=== PATIENT | female | born 1960 | race Caucasian/White ===

== ENCOUNTER → 2016-07-10 | Outpatient (CLI) | payer OTHER | LOC: FIMAGING 11:23 | DX: Z12.31 Encounter for screening mammogram for malignant neoplasm of breast (principal); Z80.3 Family history of malignant neoplasm of breast | CPT/HCPCS: G0202 ==

== ENCOUNTER 2017-07-04 11:45 | Emergency (ER) | payer OTHER ==
--- NOTE | 2017-07-04 12:01 | CPEKG ---
Heart Rate: 48 RR Interval: 1250 P-R Interval: 128 QRSD Interval: 90 QT Interval: 456 QTC Interval: 408 P [place]: 15 QRS [place]: -18 T Wave [place]: 50 EKG Severity - OTHERWISE NORMAL ECG - EKG Impression: SINUS BRADYCARDIA EKG Impression: BORDERLINE LEFT AXIS DEVIATION Electronically Signed By: Cabrera Gilbert 06-Jul-2017 12:53:21
--- NOTE | 2017-07-04 12:16 | EDPHY ---
HPI/HX/ROS/PE/MDM Narrative: CHIEF COMPLAINT: Neck/chest pressure, headache. HPI: This patient is a 56 y/o female arriving with her son complaining of headache and a sensation of pressure in her neck and chest. This morning she felt well upon waking. About one hour ago, she developed a bad headache, primarily right- sided. She took two Aleve and the head pain has resolved considerably, but remains present.Additionally the patient has a pressure sensation in her chest and up her neck which is also primarily right-sided. She has never had a similar sensation in the past. This has also lessened, but is more noticeable with deep inspiration. She denies any weakness or numbness. No nausea. No visual changes. No fever, vomiting, diarrhea, or other associated symptoms. REVIEW OF SYSTEMS: Aside from elements discussed in the HPI, a comprehensive 10-point review of systems was reviewed and is negative. PMH: History of meningoblastoma s/p surgery, chemotherapy, radiation. SOCIAL HISTORY: Son at bedside. . Lives in [place]. PHYSICAL EXAM: General:Patient is alert, in no acute distress. ENT:Eyes are normal to inspection. ENT inspection normal. Neck: Normal inspection. Full range of motion. Respiratory:No respiratory distress. Breath sounds normal bilaterally. Cardiovascular: Regular rate and rhythm. Strong peripheral pulses. Normal cap refill. Abdomen:The abdomen is nontender to palpation. There are no peritoneal signs. There are normal bowel sounds. Back: Normal to inspection. No tenderness to palpation. Skin: Normal color. No rash. Warm and dry. Extremities: Normal appearance. Full range of motion. Neuro: Oriented x3. Normal motor function. Normal sensory function. No pronator drift. Normal gait. Cranial nerves intact. ED Course: This 56 year old female presents with right-sided headache as well as right- sided chest and neck pressure. She is neurologically intact on exam. Plan for EKG, chest x-ray, labs including CBC, chemistries, and troponin. Plan for CT brain. Declines pain or nausea medication at this time. EKG was ordered and interpreted by myself. Please see [facility] system for official reading. Chest x-ray negative for acute processes. Plan for d-dimer. Laboratory studies reviewed. Troponin negative. Labs otherwise unremarkable. 13:[address] Murdock radiologist. CT head negative for acute processes. Reassessed patient. Plan to administer 30mg IV Toradol and 1L IV NS for symptom relief. D-dimer negative. 14:40 Reassessed patient. Discussed imaging results. I offered CT chest for further evaluation, but she declines. She is feeling well and is comfortable with discharge home. I provided her with a referral to cardiology for further testing. Follow up and return precautions discussed. She is comfortable with this plan. MDM: This patient presents with headache and chest pain. Given her history of brain CA, a CTH was performed which is thankfully negative for signs of bleed or large tumor recurrence. Patient's headache was treated and symptoms have largely resolved. Chest pain is atypical, and there is no evidence for ACS, PE , PTx, PNA or TAD. The etiology of her symptoms is unclear and we have recommended cardiology referral. - Data Points Imaging Results: Imaging Impressions Head CT 07/04/17 12:18 Impression: 1. Remote postoperative right posterior fossa. 2. Nothing acute identified. 3. Unusual "salt and pepper" skull. Hyperparathyroidism? Results called and discussed with Evelio Cardoso MD, at 07/04/2017 13:02 General information for patients regarding this examination can be found at [email or web address]. If you have questions or comments about this report, please contact me at (hospital) or [phone] (cell). Chest X-Ray 07/04/17 12:19 Impression: Nothing acute identified. Imaging: Discussed imaging studies w/ call center analyst Radiologist, I viewed and interpreted images myself Laboratory Results: Laboratory Results 07/04/17 12:10 07/04/17 12:10 07/04/17 07/04/17 07/04/17 12:10 12:10 12:10 WBC 5.73 10^3/uL 10^3/uL (3.80-9.50) RBC 4.10 10^6/uL L 10^6/uL (4.18-5.33) Hgb 13.2 g/dL g/dL (12.6-16.3) Hct 38.9 % % (38.0-47.0) MCV 94.9 fL fL (81.5-99.8) MCH 32.2 pg pg (27.9-34.1) MCHC 33.9 g/dL g/dL (32.4-36.7) RDW 12.3 % % (11.5-15.2) Plt Count 250 10^3/uL 10^3/uL (150-400) MPV 9.9 fL fL (8.7-11.7) Neut % (Auto) 58.8 % % (39.3-74.2) Lymph % (Auto) 27.4 % % (15.0-45.0) Blanco % (Auto) 7.7 % % (4.5-13.0) Eos % (Auto) 4.4 % % (0.6-7.6) Baso % (Auto) 1.4 % % (0.3-1.7) Nucleat RBC Rel Count 0.0 % % (0.0-0.2) Absolute Neuts (auto) 3.37 10^3/uL 10^3/uL (1.70-6.50) Absolute Lymphs (auto) 1.57 10^3/uL 10^3/uL (1.00-3.00) Absolute Monos (auto) 0.44 10^3/uL 10^3/uL (0.30-0.80) Absolute Eos (auto) 0.25 10^3/uL 10^3/uL (0.03-0.40) Absolute Basos (auto) 0.08 10^3/uL 10^3/uL (0.02-0.10) Absolute Nucleated RBC 0.00 10^3/uL 10^3/uL (0-0.01) Immature Gran % 0.3 % % (0.0-1.1) Immature Gran # 0.02 10^3/uL 10^3/uL (0.00-0.10) D-Dimer < 0.27 ug/mLFEU ug/mLFEU (0.00-0.50) Sodium 136 mEq/L mEq/L (135-145) Potassium 4.4 mEq/L mEq/L (3.5-5.2) Chloride 97 mEq/L mEq/L (97-110) Carbon Dioxide 28 mEq/l mEq/l (22-31) Anion Gap 11 mEq/L mEq/L (8-16) BUN 17 mg/dL mg/dL (7-23) Creatinine 0.7 mg/dL mg/dL (0.6-1.0) Estimated GFR > 60 Glucose 81 mg/dL mg/dL (70-100) Calcium 9.5 mg/dL mg/dL (8.5-10.4) Troponin I < 0.012 ng/mL ng/mL (0.000-0.034) Medications Given: Discontinued Medications Sodium Chloride (Ns) 1,000 mls @ 0 mls/hr IV EDNOW ONE; Wide Open PRN Reason: Protocol Stop: 07/04/17 13:42 Last Admin: 07/04/17 14:00 Dose: 1,000 mls Ketorolac Tromethamine (Toradol) 30 mg IVP EDNOW ONE Stop: 07/04/17 13:42 Last Admin: 07/04/17 14:01 Dose: 30 mg General Time Seen by Provider: 07/04/17 11:53 Initial Vital Signs: Initial Vital Signs Temperature (C) 36.4 C 07/04/17 11:46 Heart Rate 65 07/04/17 11:46 Respiratory Rate 20 07/04/17 11:46 Blood Pressure 148/65 H 07/04/17 11:46 O2 Sat (%) 98 07/04/17 11:46 O2 Delivery Mode Room Air Allergies/Adverse Reactions: No Allergies [NKDA] Allergy (Verified 07/04/17 11:46) Home Medications: Medication Instructions Recorded NK [No Known Home Meds] 07/04/17 Departure - Departure Disposition: Home, Routine, Self-Care Clinical Impression: Headache, Chest pain Condition: Good Instructions: Chest Pain (ED), Acute Headache (ED) Additional Instructions: Follow-up with your primary doctor in 2-3 days. Follow up with a assistant administrator for further testing. We have referred you to our assistant administrator front desk. Return to the Emergency Department for fever, chest pain, shortness of breath, increasing pain, vomiting, vision changes, confusion, or other worsening of condition. Referrals: Jefferson Morales MD [Primary Care Provider] - As per Instructions Kamaljit Martinez MD [Medical Doctor] - As per Instructions Report Scribed for: Evelio Cardoso Report Scribed by: Neisha Rousseau Date of Report: 07/04/17 Time of Report: 12:16 Physician Review and Approval Statement: Portions of this note were transcribed by an ED scribe. I personally performed the history, physical exam, and medical decision making; and confirm the accuracy of the information in the transcribed note.
[2017-07-04 12:26] LABS: PLATELET COUNT 250 10^3/uL (150-400)
[2017-07-04] MEDS ORDERED: KETOROLAC 30 MG/1 ML SDV IVP ONE (13:41)
[2017-07-04] MEDS ORDERED: NS 1,000 ML IV ONE (13:41)
[2017-07-04 15:09] VITALS: BP 132/68
== END 2017-07-04 15:09 | disposition home or self-care (01) ==
DX: R51 Headache (principal); R07.9 Chest pain, unspecified; E86.9 Volume depletion, unspecified
CPT/HCPCS: 96374; J1885

== ENCOUNTER → 2017-07-31 | Outpatient (CLI) | payer OTHER | LOC: FIMAGING 14:06 | PROVIDERS: ATTEND Internal Medicine | DX: Z12.31 Encounter for screening mammogram for malignant neoplasm of breast (principal); Z80.3 Family history of malignant neoplasm of breast ==

== ENCOUNTER → 2017-09-07 | Outpatient (CLI) | payer OTHER | LOC: FIMAGING 13:49 | PROVIDERS: ATTEND Internal Medicine | DX: Z13.820 Encounter for screening for osteoporosis (principal); M85.89 Other specified disorders of bone density and structure, multiple sites; E21.5 Disorder of parathyroid gland, unspecified; E03.9 Hypothyroidism, unspecified; Z78.0 Asymptomatic menopausal state ==

== ENCOUNTER → 2018-05-08 | Outpatient (CLI) | payer OTHER | LOC: BMCIMAGING 09:50 → EDSTATUS 09:59 | PROVIDERS: ATTEND Orthopaedic Surgery Hand Surgery | DX: M25.511 Pain in right shoulder (principal) ==

== ENCOUNTER → 2018-08-02 | Outpatient (CLI) | payer OTHER | LOC: FIMAGING 12:29 | PROVIDERS: ATTEND Internal Medicine | DX: Z12.31 Encounter for screening mammogram for malignant neoplasm of breast (principal); Z80.3 Family history of malignant neoplasm of breast ==

== ENCOUNTER → 2018-08-13 | Outpatient (CLI) | payer OTHER | LOC: FIMAGING 12:38 | PROVIDERS: ATTEND Internal Medicine | DX: M54.2 Cervicalgia (principal) ==

== ENCOUNTER → 2018-09-03 | Outpatient (CLI) | payer OTHER | LOC: FIMAGING 15:47 ==